=== PATIENT | female | born 2005 | race Hispanic/Latino ===

== ENCOUNTER → 2024-04-22 | Day surgery (SDC) | payer OTHER ==
[~2024-04-22] MED LIST: ANUSOL-HC30 GM RC; DICYCLOMINE HCL20 MG PO
[2024-04-22] MEDS: LACTATED RINGER'S 1,000 ML ONE (14:43)
[2024-04-22 17:40] VITALS: BP 101/66; PULSE 68; RESP 17; TEMP 97; O2SAT 99
== END | disposition home or self-care (01) ==
LOC: OR 13:54
PROVIDERS: ATTEND Internal Medicine Gastroenterology
DX: K29.50 Unspecified chronic gastritis without bleeding (principal); K29.80 Duodenitis without bleeding; K31.7 Polyp of stomach and duodenum; K64.8 Other hemorrhoids; K62.5 Hemorrhage of anus and rectum; K59.00 Constipation, unspecified; D64.9 Anemia, unspecified; F41.9 Anxiety disorder, unspecified; F32.A Depression, unspecified; Z79.899 Other long term (current) drug therapy
CPT/HCPCS: 43239; 45378; 81025; J7121